=== PATIENT | male | born 1970 | race Two or more races ===

== ENCOUNTER 2025-01-28 14:06 | Emergency (ER) | payer OTHER, SELFPAY ==
--- NOTE | 2025-01-28 14:23 | PD.EDCHEST ---
ED Chest Pain RME/HPI General Chief Complaint: Altered Mental Status Stated Complaint: CHEST PAIN Time Seen by Provider: 01/28/25 14:25 Source: patient and EMS Arrival date/time: 01/28/25 14:06 Mode of arrival: EMS Limitations: no limitations RME / HPI RME / HPI narrative: DR. JAYLEEN PEOPLES ED EVALUATION: 54-year-old male with past medical history of achalasia status post esophageal surgery 20 years ago and GERD presents to the Emergency Department [facility] after developing acute chest pain while driving from [facility] to [place]. He reports associated numbness and tingling in both arms and legs. He denies having experienced similar symptoms in the past. Per EMS, patient was tachycardic with a heart rate was 115?131 en route. ASA and sublingual nitro given en route by EMS. When EMS arrived patient was already out of the car. Was able to ambulate onto the the ambulance without any difficulties. Both arms and both legs were moving without any abnormalities. Related Data Allergies Allergy/AdvReac Type Severity Reaction Status Date / Time No Known Allergies Allergy Verified 01/28/25 15:22 Review of Systems Review of Systems Systems Reviewed: All systems reviewed, normal except as documented Past Medical History Social History SMOKING STATUS: Never smoker SUBSTANCE USE: does not use ALCOHOL: Never Past Medical History Comments PMH COMMENT: Achalasia status post esophageal surgery 20 years ago and GERD. ED Exam General Limitations: Present no limitations General appearance: Present alert and in no apparent distress Head Head exam: Present atraumatic, normocephalic and normal inspection Eye Eye exam: Present normal appearance, PERRL and EOMI ENT ENT exam: Present normal exam, normal oropharynx and mucous membranes moist Neck Neck exam: Present normal inspection, full ROM and trachea midline Chest Chest inspection: Present normal inspection and symmetric chest wall rise Respiratory Respiratory exam: Present normal lung sounds bilaterally and wheezes; Absent respiratory distress Cardiovascular Cardiovascular exam: Present regular rate Abdominal Exam Abdominal exam: Present soft; Absent distention, tenderness or guarding Extremities Exam Extremities exam: Present normal inspection and other (Patient globally weak in all 4 extremities) Back Exam Back exam: Present normal inspection Neurological Exam Neurological exam: Present alert, oriented X3, CN II-XII intact and other (Globally weak in all 4 extremities on initial assessment) Skin Skin exam: Present warm, dry, intact and normal color Course Quality Measures none Orders Category Date Time Status Bedside Blood Glucose NOW Care 01/28/25 14:[address] Screening NOW Care 01/28/25 14:43 Active Copping Machine Operator NOW Care 01/28/25 14:44 Active Continuous Pulse Oximetry NOW Care 01/28/25 14:44 Completed EKG (ED ONLY) *Do not use* NOW Care 01/28/25 14:26 Completed In and Out Catheter NEEDED Care 01/28/25 14:44 Active Insert IV NOW Care 01/28/25 14:44 Active MRI Screening NOW Care 01/28/25 15:42 Active NIH Stroke Scale now Care 01/28/25 14:44 Active NPO NOW Care 01/28/25 14:44 Active Neuro Check Q1HR Care 01/28/25 14:44 Active Nurse Swallow Screen x1 Care 01/28/25 14:44 Active Consult to Neurology / Tele-Neurology Routine Cons 01/28/25 14:[address] angio chest Stat Exams 01/28/25 14:[address] angio stroke protocol Stat Exams 01/28/25 14:[address] stroke protocol Stat Exams 01/28/25 14:44 Completed CXR [XR chest 1V] Stat Exams 01/28/25 14:27 Completed EKG (ED Only) Stat Exams 01/28/25 14:26 Draft CBC Stat Lab 01/28/25 15:00 Completed CMP [Comprehensive Metabolic Panel] Stat Lab 01/28/25 15:00 Completed Drug Screen,Urine Stat Lab 01/28/25 14:26 Ordered INR [Prothrombin Time with INR] Stat Lab 01/28/25 15:00 Completed Magnesium Stat Lab 01/28/25 15:00 Completed T4 (Thyroxine) Stat Lab 01/28/25 15:00 Completed TSH [Thyroid Stimulating Hormone] Stat Lab 01/28/25 15:00 Completed Troponin I Stat Lab 01/28/25 15:00 Completed UA, C/S IF [Urinalysis, C/S if Indicated] Stat Lab 01/28/25 14:26 Ordered Labetalol IV [Trandate IV] Med 01/28/25 14:43 Discontinued 10 mg IVP Q15M PRN Morphine* Inj Med 01/28/25 14:25 Discontinued 2 mg IVP STAT STA Ondansetron Inj [Zofran Inj] Med 01/28/25 14:43 Discontinued 4 mg IVP Q4HR PRN Ondansetron Inj [Zofran Inj] Med 01/28/25 14:25 Discontinued 4 mg IVP X1 ONE Tenecteplase Inj [TNKase Inj] Med 01/28/25 15:25 Discontinued 24.9 mg IV X1 ONE Tenecteplase Inj [TNKase Inj] Med 01/28/25 15:23 Discontinued 50 mg .ROUTE .STK-MED ONE Oxygen Delivery NOW RT 01/28/25 14:44 Active Vital Signs Vital signs: Vital Signs Pulse Rate 87 01/28/25 14:44 Chest Pain MDM Narrative MDM Narrative:: Patient is a 54-year-old male with no significant past medical history seen emerged primary concerns for acute onset chest pain. Vital signs and exam as listed. Concern for ACS arrhythmia electrolyte abnormality metabolic derangement among others. Ordered labs EKG chest x-ray. Also offered medication for symptom relief. Patient did receive aspirin and nitroglycerin and route. 2:43p was asked by nursing staff to reevaluate patient, patient is now moving his left upper extremity, however has weakness on the right side of his body. This is an acute change as per EMS patient was walking and ambulatory on their arrival. Initially did not have any focal neurodeficits. On my initial evaluation patient with diffuse weakness in all 4 extremities, however nonfocal, no cranial nerve deficits. Patient did not endorse dizziness. Per the patient's the patient has a history of a right lower extremity vascular derangement requiring recurrent visits for vein stripping. Given that patient has new focal neuro deficits with weakness in RUE/RLE, activated patient as a stroke alert and order CTA chest. My interpretation: EKG performed at 1525 hours, sinus rhythm, rate 71, normal intervals, non specific T wave changes, no cardiac alert. Labs without acute hematologic or significant metabolic abnormality. T. bili 1.3 no other transaminitis. Patient without any abdominal pain. Troponin not elevated. Thyroid studies unremarkable. CT brain, CT angio of the head and neck unremarkable. CT angio of the chest without evidence of any acute abnormalities. Chest x-ray unremarkable. During teleneurologist evaluation, patient had persistent weakness of his right upper and right lower extremity. Towards the end of the evaluation patient regained full control of his right upper and right lower extremity. Teleneurologist did not recommend that we administer tenecteplase. I am in agreement. Does recommend that we admit the patient for further workup as he may be having a TIA. 4:24p on reevaluation patient hemodynamically stable not in distress, GCS 15 no focal neurodeficits. Discussed with hospitalist, kindly accepted patient for admission I, Magnolia Miller, am scribing for and in the presence of Dr. Lopez. Patient data External records reviewed:: EMS form Clinical information provided by:: patient and EMS Social determinants that could affect healthcare access:: none Patient has the following chronic illnesses:: Achalasia status post esophageal surgery 20 years ago and GERD. How is presenting disease/condition affected by chronic disease/condition?: uneffected by Evaluation data The following diagnostics were reviewed and interpreted by me:: lab results, radiology exam(s) and EKG tracing(s) (My interpretation: EKG performed at 1525 hours, sinus rhythm, rate 71, normal intervals, non specific T wave changes, no cardiac alert) Lab and/or radiology exams considered but not ordered:: none Interpretation Summary: See MDM narrative above. RADIOLOGY Procedure(s): CT angio stroke protocol Accession Number(s): [id number] cc: Alex Edmond MD; Carin Lopez MD~ Examination: CTA carotids with intravenous contrast CTA brain, head with intravenous contrast. 2-D sagittal, coronal reconstructions. 3-D reconstructions. Exam date and time: January 28, 2025, 1445 hrs. Indications: Stroke alert, onset focal neurologic deficit today CTDI: vol (mGy) 11.6 DLP: (mGycm) 177 Technique: Multiple CTA axial brain, head carotid images post intravenous contrast injection 75 cc, Isovue-370. 2-D sagittal, coronal reconstructions. 3-D reconstructions, 3-D post processing including vascular maximum intensity projection images. Low dose protocols were performed. One or more of the following dose reduction techniques were used; automated exposure control, adjustment of the mA and/or KV according to patient size, use of iterative reconstruction technique. Findings: No significant common carotid, carotid bifurcation or internal carotid artery stenoses. Minimally dominant left vertebral artery in the neck with no critical stenoses. Intracranial vertebral arteries basilar artery and posterior cerebral branches fill with no large vessel occlusions Petrous juxtasellar portions internal carotid arteries intact M1 segments middle cerebral arteries middle cerebral artery trifurcation vessels and anterior cerebral arteries with no large vessel occlusions. Impression: No significant neck arterial stenoses No cerebral large vessel arterial occlusions or thrombus Dictated By: Alex Edmond MD Procedure(s): CT stroke protocol Accession Number(s): [id number] cc: Alex Edmond MD; Carin Lopez MD~ Examination: CT brain head without contrast. 2-D sagittal coronal reconstructions Date and time of exam:January 28, 2025, 1450 hrs. Indications: Stroke alert, onset focal neurologic deficit including right-sided body weakness today CTDI: vol (mGy):50 DLP: (mGycm):986 Technique: Multiple CT axial sections of the brain have been obtained, 5 mm slice thickness. Contrast has not been administered. 2-D sagittal, coronal reconstructions have been obtained Low dose protocols were performed. One or more of the following dose reduction techniques were used; automated exposure control, adjustment of the mA and/or KV according to patient size, use of iterative reconstruction technique. Findings: No significant ventricular enlargement. Intra-axial or extra-axial hemorrhage density is not seen. No mass effect or midline shift Basal cisterns are not remarkable. Fourth ventricle is midline. Cranial vault intact. Impression: Negative for acute hemorrhage, mass effect or midline shift Dictated By: Alex Edmond MD Procedure(s): CT angio chest Accession Number(s): [id number] cc: Alex Edmond MD; Carin Lopez MD~ Examination: CTA chest with intravenous contrast 2-D reconstructions 3-D reconstructions, vascular Date and time of exam: January 28, 2025, 1518 hrs. Indications: Onset chest pain shortness of breath today CTDI: vol (mGy) 14.7 DLP: (mGycm) 649 Technique: Multiple axial sections of the thorax have been obtained. 3 mm slice thickness, from below the hemidiaphragms to above the apices of the lungs. Mediastinal and lung density settings have been obtained. 2-D sagittal and coronal reconstructions. 3-D angiographic renderings, 3-D volume renderings, 3D post processing, vascular maximum intensity projections obtained. Contrast administered is 100 cc Isovue-370 intravenous. Low dose protocols were performed. One or more of the following dose reduction techniques were used; automated exposure control, adjustment of the mA and/or KV according to patient size, use of iterative reconstruction technique. Findings: No thoracic aortic aneurysm dilatation or dissection Pulmonary artery segments are not enlarged. No pulmonary artery filling defects Mild calcification left anterior descending coronary artery. Mild enlargement left atrium left ventricle. No paratracheal tracheobronchial or bronchopulmonary adenopathy. No pneumonia pulmonary edema or pleural disease. Retrocardiac gastric hernia. No visualized liver splenic lesion. Absent gallbladder. No pancreatic or adrenal mass. Moderate renal scar formation Impression: No thoracic aortic aneurysm dilatation or dissection. Negative for pulmonary artery emboli. No pneumonia, pulmonary edema or pleural disease Dictated By: Alex Edmond MD Procedure(s): XR chest 1V Accession Number(s): [id number] cc: Alex Edmond MD; Carin Lopez MD~ Examination: AP chest single view Technique one AP portable semiupright chest single view Date and time: January 28, 2025, 1436 hrs. Indications: Chest pain today. Findings: Normal heart size. Lungs are clear. The osseous structures are intact. Impression: No active disease. Dictated By: Alex Edmond MD Medications / Prescriptions Medications or Prescriptions considered but not ordered:: none Medication administrations:: Medication Administration History Discontinued Medications Labetalol HCl (Labetalol Inj 5 Mg/Ml Vial 20 Ml) 10 mg IVP Q15M PRN PRN Reason: HYPER Morphine Sulfate (Morphine Sulf Inj 4 Mg/Ml Vial) 2 mg IVP STAT STA Stop: 01/28/25 14:26 Ondansetron HCl (Ondansetron Inj 2 Mg/Ml Inj 2 Ml) 4 mg IVP X1 ONE; Protocol Stop: 01/28/25 14:26 Last Admin: 01/28/25 16:03 Dose: 4 mg Documented By: KELLY Ondansetron HCl (Ondansetron Inj 2 Mg/Ml Inj 2 Ml) 4 mg IVP Q4HR PRN PRN Reason: NAUSEA OR VOMITING Stop: 02/27/25 14:42 Tenecteplase (Tenecteplase Inj 50 Mg Vial) Confirm Administered Dose 50 mg .ROUTE .STK-MED ONE Stop: 01/28/25 15:24 Last Admin: 01/28/25 15:40 Dose: Not Given Documented By: DB Non-Admin Reason: Duplicate Medication on eMAR Tenecteplase (Tenecteplase Inj 50 Mg Vial) 24.9 mg 0.25 mg/kg (24.9 mg) IV X1 ONE Stop: 01/28/25 15:26 Last Admin: 01/28/25 15:40 Dose: Not Given Documented By: DB Non-Admin Reason: Cancelled by Provider see above if any Consultations Consultation(s) initiated? (list below): Yes Consultation #1 (Physician, Specialty, Details): Discussed test HPI, PMHx, lab, radiology results and/or management with resident working with the hospitalist. Will admit for further evaluation and management. Accepts patient for admission. Time: 16:26 Diagnosis Chest Pain Differential Diagnosis: other (Acute coronary syndrome, arrhythmia, and anxiety/panic attack.) Most likely diagnosis given after review of the tests above:: TIA, chest pain Admission Indicated Admission indicated?: indicated Admission Request Was there a request for admission?: Yes Admission Attestation Admission request attestation: Discussed case with Hospitalist service regarding admission. Discussed patients ED course, exam findings, labs, and radiology results. The Hospitalist [agrees] to accept the patient for admission. Disposition Plan Disposition Plan: Admit Critical Care Time Critical Care Time Critical Care Time: Yes Total Critical Care Time (min.): 45 Attestation: ?I spent 45 minutes of critical care time with this patient not including reportable procedures. There was an acute impairment of an organ system with a high probability of imminent or life threatening deterioration in the patient's condition. Interventions and changes required in the course of therapy are located in the chart. Time involved was spent in direct patient care, reviewing ancillary data, old records, consulting with decision makers, EMS, other doctors, giving orders and documenting. Discharge Plan Problem List Clinical Impression: Brain TIA, Chest pain Patient/Caregiver Discharge Instructions Print Language: [place]ian
--- NOTE | 2025-01-28 14:26 | EKG_ITS ---
[facility] Test Date: 2025-01-28 Pat Name: ANTONIO PIERCE Department: Room: - Gender: Male [employer]: : 1970 Requested By: Carin Olson Order Number: [id number] Reading MD: Carin Olson Measurements Intervals [place] Rate: 71 P: 59 [place]: 153 QRS: 16 QRSD: 88 T: 27 QT: 397 QTc: 432 Interpretive Statements SINUS RHYTHM No previous ECG available for comparison /store/S0/[id number]/ecg/[id number].pdf
--- NOTE | 2025-01-28 14:27 | XR_ITS ---
Examination: AP chest single view Technique one AP portable semiupright chest single view Date and time: January 28, 2025, 1436 hrs. Indications: Chest pain today. Findings: Normal heart size. Lungs are clear. The osseous structures are intact. Impression: No active disease.
--- NOTE | 2025-01-28 14:43 | XR_ITS ---
Examination: CTA chest with intravenous contrast 2-D reconstructions 3-D reconstructions, vascular Date and time of exam: January 28, 2025, 1518 hrs. Indications: Onset chest pain shortness of breath today CTDI: vol (mGy) 14.7 DLP: (mGycm) 649 Technique: Multiple axial sections of the thorax have been obtained. 3 mm slice thickness, from below the hemidiaphragms to above the apices of the lungs. Mediastinal and lung density settings have been obtained. 2-D sagittal and coronal reconstructions. 3-D angiographic renderings, 3-D volume renderings, 3D post processing, vascular maximum intensity projections obtained. Contrast administered is 100 cc Isovue-370 intravenous. Low dose protocols were performed. One or more of the following dose reduction techniques were used; automated exposure control, adjustment of the mA and/or KV according to patient size, use of iterative reconstruction technique. Findings: No thoracic aortic aneurysm dilatation or dissection Pulmonary artery segments are not enlarged. No pulmonary artery filling defects Mild calcification left anterior descending coronary artery. Mild enlargement left atrium left ventricle. No paratracheal tracheobronchial or bronchopulmonary adenopathy. No pneumonia pulmonary edema or pleural disease. Retrocardiac gastric hernia. No visualized liver splenic lesion. Absent gallbladder. No pancreatic or adrenal mass. Moderate renal scar formation Impression: No thoracic aortic aneurysm dilatation or dissection. Negative for pulmonary artery emboli. No pneumonia, pulmonary edema or pleural disease
[2025-01-28 14:44] VITALS: PULSE 87
--- NOTE | 2025-01-28 14:44 | XR_ITS ---
Examination: CTA carotids with intravenous contrast CTA brain, head with intravenous contrast. 2-D sagittal, coronal reconstructions. 3-D reconstructions. Exam date and time: January 28, 2025, 1445 hrs. Indications: Stroke alert, onset focal neurologic deficit today CTDI: vol (mGy) 11.6 DLP: (mGycm) 177 Technique: Multiple CTA axial brain, head carotid images post intravenous contrast injection 75 cc, Isovue-370. 2-D sagittal, coronal reconstructions. 3-D reconstructions, 3-D post processing including vascular maximum intensity projection images. Low dose protocols were performed. One or more of the following dose reduction techniques were used; automated exposure control, adjustment of the mA and/or KV according to patient size, use of iterative reconstruction technique. Findings: No significant common carotid, carotid bifurcation or internal carotid artery stenoses. Minimally dominant left vertebral artery in the neck with no critical stenoses. Intracranial vertebral arteries basilar artery and posterior cerebral branches fill with no large vessel occlusions Petrous juxtasellar portions internal carotid arteries intact M1 segments middle cerebral arteries middle cerebral artery trifurcation vessels and anterior cerebral arteries with no large vessel occlusions. Impression: No significant neck arterial stenoses No cerebral large vessel arterial occlusions or thrombus
--- NOTE | 2025-01-28 14:44 | XR_ITS ---
Examination: CT brain head without contrast. 2-D sagittal coronal reconstructions Date and time of exam:January 28, 2025, 1450 hrs. Indications: Stroke alert, onset focal neurologic deficit including right-sided body weakness today CTDI: vol (mGy):50 DLP: (mGycm):986 Technique: Multiple CT axial sections of the brain have been obtained, 5 mm slice thickness. Contrast has not been administered. 2-D sagittal, coronal reconstructions have been obtained Low dose protocols were performed. One or more of the following dose reduction techniques were used; automated exposure control, adjustment of the mA and/or KV according to patient size, use of iterative reconstruction technique. Findings: No significant ventricular enlargement. Intra-axial or extra-axial hemorrhage density is not seen. No mass effect or midline shift Basal cisterns are not remarkable. Fourth ventricle is midline. Cranial vault intact. Impression: Negative for acute hemorrhage, mass effect or midline shift
[2025-01-28 15:19] LABS: Basophils # (Auto) 0.0 Thou/mm3 (0.0-0.2); Basophils % (Auto) 0 % (0-2.5); Eosinophils # (Auto) 0.1 Thou/mm3 (0.0-0.5); Eosinophils % (Auto) 1 % (0-10); Hematocrit 44.6 % (41.0-53.0); Hemoglobin 15.3 g/dL (13.5-16.0); Immature Granulocytes Auto 0.04 Thou/mm3 (0.00-0.00); Lymphocytes # (Auto) 1.2 Thou/mm3 (1.0-4.8); Lymphocytes % (Auto) 17 % (10-50); Mean Corpuscular HGB Conc 34.3 g/dl (31.0-37.0); Mean Corpuscular Hemoglobin 30.4 pg (25.0-35.0); Mean Corpuscular Volume 89 fL (80-100); Monocytes # (Auto) 0.5 Thou/mm3 (0.0-0.8); Monocytes % (Auto) 7 % (0-12); Neutrophils # (Auto) 5.3 Thou/mm3 (1.8-7.7); Neutrophils % (Auto) 74 % (37-80); Nucleated Red Blood Cell # 0.00 Thou/mm3 (0.00-0.00); Nucleated Red Blood Cell % 0 /100 WBC (0); Platelet Count 210 Thou/mm3 (140-440); RDW Standard Deviation 43.4 fL (35.1-43.9); Red Blood Count 5.03 Miln/mm3 (4.50-5.90); White Blood Count 7.1 Thou/mm3 (3.8-10.6)
[2025-01-28 15:21] VITALS: BMI 28.2
[2025-01-28 15:31] LABS: INR 1.0 (0.9-1.3); Prothrombin Time 11.4 Seconds (9.0-12.2)
[2025-01-28 15:40] LABS: T4 (Thyroxine) 8.0 mcg/dL (4.5-10.9)
[2025-01-28 15:41] LABS: Alanine Aminotransferase 22 U/L (10-49); Albumin, Serum 4.7 gm/dL (3.5-5.0); Albumin/Globulin Ratio 1.8 (1.2-2.2); Alkaline Phosphatase 49 U/L (46-116); Anion Gap 13 (7-16); Aspartate Amino Transferase 26 U/L (0-34); BUN/Creatinine Ratio 10 Ratio (12-20); Bilirubin,Total 1.3 mg/dL (0.3-1.2); Blood Urea Nitrogen 11 mg/dL (9-23); Calcium 9.7 mg/dL (8.3-10.6); Calcium (Corrected) 9.7 mg/dL (8.5-10.1); Carbon Dioxide 21.0 mMol/L (20.0-31.0); Chloride 105 mMol/L (98-107); Creatinine (Component) 1.1 mg/dL (0.6-1.3); Estimated Creatinine Clearance 98.0 mL/min (>60); Globulin 2.6 gm/dL (2.3-3.5); Glucose 123 mg/dL (74-106); Magnesium 2.0 mg/dL (1.6-2.6); Osmolality,Calculated 277 (275-295); Potassium 3.8 mMol/L (3.4-5.1); Sodium 139 mMol/L (136-145); Thyroid Stimulating Hormone 1.05 uIU/mL (0.55-4.78); Total Protein 7.3 gm/dL (5.7-8.2); Troponin I < 0.020 ng/mL (0.0-0.045); eGFR > 60 See Note
--- NOTE | 2025-01-28 15:44 | ESCONSULT_ITS ---
Tele Neuro Consultation Consultation Date 01/28/25 Most Recent Vital Signs Last Vital Signs Pulse 87 01/28/25 14:44 Laboratory-Coagulation Panel PT 11.4 Seconds (9.0-12.2) 01/28/25 15:00 INR 1.0 (0.9-1.3) 01/28/25 15:00 Consultation Narrative [facility] TeleNeurology Consult Services Patient Name:???Leeroy Johns Jr. Date of :???1970 Date of Service:???01/28/2025 14:51:33 Diagnosis:?I63.89 - Cerebrovascular accident (CVA) due to other mechanism (HCCC) Impression: ?This is a 54-year-old male history who presents to the hospital with initially chest pain nausea and dizziness who then had onset of right-sided weakness in the emergency department. Last known well initially reported to be 11 AM but chest pain resolved with nitroglycerin and right-sided weakness started shortly after 2 PM when he arrived in the hospital. NIH stroke scale 4 for right arm and leg weakness. He reports chronic changes in the right lower extremity with some venous insufficiency/drainage issues that he is going to start treatment for in March. CT head with no acute findings. Obtain CT angio to rule out dissection given chest pain prior to onset. We had initially discussed the risks and benefits of tenecteplase and were ready to push the medication while waiting for the CT angio chest. Symptoms improved while waiting for confirmation regarding CTA chest. He was able to lift and sustain the right arm and leg without evidence of drift. TNK was deferred given improved symptoms. CTA head and neck was negative for large vessel occlusion. ?Recommend admission for MRI brain wo contrast and loading with DAPT. Our recommendations are outlined below. Recommendations: ? Stroke/Telemetry Floor ? Neuro Checks (Q4) ? Bedside Swallow Eval ? DVT Prophylaxis ? IV Fluids, Normal Saline ? Head of Bed 30 Degrees ? Euglycemia and Avoid Hyperthermia (PRN Acetaminophen) ? Bolus with Clopidogrel 300 mg bolus x1 and initiate dual antiplatelet therapy with Aspirin 81 mg daily and Clopidogrel 75 mg daily ?MRI brain without contrast ?Labs: lipid panel and hemoglobin A1C if not done within last 90 days ?Statin therapy if LDL > 70 ?TTE with bubble ?Holter monitor at discharge to assess for A-fib ?PT/OT/Speech Sign Out: ? Discussed with Emergency Department Provider Advanced Imaging: CTA Head and Neck Completed. LVO:No Patient is not a candidate for DENISE Metrics: Last Known Well: 01/28/2025 14:00:00 Dispatch Time: 01/28/2025 14:51:33 Initial Response Time: 01/28/2025 14:54:00Symptoms: R sided weakness, dizziness, nausea, chest pain. Initial patient interaction: 01/28/2025 14:54:42 NIHSS Assessment Completed: 01/28/2025 14:58:14Patient is not a candidate for Thrombolytic. Thrombolytic Medical Decision: 01/28/2025 15:24:15Patient was not deemed candidate for Thrombolytic because of following reasons: Resolved symptoms . Weight Noted by Staff: 99.[address] Head: I personally reviewed all the CT images that were available to me and it showed: no acute intracranial process Primary Provider Notified of Diagnostic Impression and Management Plan on: 01/28/2025 15:33:29 History of Present Illness:Patient is a 54 year old Male. He has not been feeling well for the last 24 hours per - he has had some nausea[place] continued to get more nauseous. He was very uncomfortable and started having chest pain as well. When he would get out of the car, he seemed off balance and was stumbling, said he was walking like he was drunk. He was also having a hard time breathing. Right sided weakness was not appreciated until they arrived in the ED. Patient reported baseline RLE weakness but the R arm weakness is new and started after he arrived in the ED. He was up walking around prior to EMS arriving on the scene without the right sided symptoms. He is starting treatments in March for some swelling in the RLE - had a severe fracture in the RLE many years ago. He has a lot of baseline swelling in the leg. US showed a lot of damaged veins that are leaking into his leg and they need to go in and cauterize the vessels, per report from 's doctor at home. said it does not seem to be an urgent matter. Do not have access to records. Past Medical History: ?There is no history of Hypertension ?There is no history of Diabetes Mellitus ?There is no history of Hyperlipidemia Medications: No Anticoagulant use? No Antiplatelet use Reviewed EMR for current medications Allergies:? Reviewed Social History: Smoking: No Alcohol Use: Yes Family History: There is no family history of premature cerebrovascular disease pertinent to this consultation ROS : 14 Points Review of Systems was performed and was negative except mentioned in HPI. Past Surgical History: There Is No Surgical History Contributory To Today?s Visit Examination: BP(140/90),?Pulse(74), 1A: Level of Consciousness - Alert; keenly responsive?+ 0 1B: Ask Month and Age - Both Questions Right?+ 0 1C: Blink Eyes & Squeeze Hands - Performs Both Tasks?+ 0 2: Test Horizontal Extraocular Movements - Normal?+ 0 3: Test Visual Shel[place] - No Visual Loss?+ 0 4: Test Facial Palsy (Use Grimace if Obtunded) - Normal symmetry?+ 0 5A: Test Left Arm Motor Drift - No Drift for 10 Seconds?+ 0 5B: Test Right Arm Motor Drift - Drift, but doesn't hit bed?+ 1 6A: Test Left Leg Motor Drift - No Drift for 5 Seconds?+ 0 6B: Test Right Leg Motor Drift - No Effort Against [place]?+ 3 7: Test Limb Ataxia (FNF/Heel-Hutton) - No Ataxia?+ 0 8: Test Sensation - Normal; No sensory loss?+ 0 9: Test Language/Aphasia - Normal; No aphasia?+ 0 10: Test Dysarthria - Normal?+ 0 11: Test Extinction/Inattention - No abnormality?+ 0 NIHSS Free Text :?had significant difficulty lifting up the right arm Pre-Morbid Modified Rufus Scale: 1 Points = No significant disability despite symptoms; able to carry out all usual duties and activities Spoke with :?Dr. Lopez This consult was conducted in real time using interactive audio and video technology. Patient was informed of the technology being used for this visit and agreed to proceed. Patient located in hospital and provider located at home/office setting. Patient is being evaluated for possible acute neurologic impairment and high probability of imminent or life-threatening deterioration. I spent total of 35 minutes providing care to this patient, including time for face to face visit via telemedicine, review of medical records, imaging studies and discussion of findings with providers, the patient and/or family. Dr Jenny Neely [facility] For Inpatient follow-up with [facility] physician please call [facility] at . As we are not an outpatient service for any post hospital discharge needs please contact the hospital for assistance. If you have any questions for the [facility] physicians or need to reconsult for clinical or diagnostic changes please contact us via [facility] at . Signature :?Jenny Neely
[2025-01-28 16:01] VITALS: BP 153/91; PULSE 67; RESP 18; TEMP 36.5; O2SAT 95
[2025-01-28] MEDS: ONDANSETRON INJ 2 MG/ML INJ 2 ML 4 MG IVP (16:03)
[2025-01-28 16:08] VITALS: PULSE 67; RESP 16; RESP 97
[2025-01-28 16:39] LABS: Collection Type, Urine Clean Catch
[2025-01-28 16:51] VITALS: PULSE 71; RESP 19; RESP 97
[2025-01-28 17:12] LABS: Amphetamine/Methamp Scrn,U Negative (Negative); Barbiturate Screen,Urine Negative (Negative); Benzodiazepines Screen,Urine Negative (Negative); Benzoylecgonine Screen, Ur Negative (Negative); Fentanyl Screen,Urine Negative (Negative); Opiate Screen,Urine Negative (Negative); THC Screen,Urine Negative (Negative)
[2025-01-28 17:23] LABS: Bilirubin,Urine Negative (Negative); Blood,Urine Negative (Negative); Clarity,Urine Clear (Clear/Hazy); Color,Urine Lt-Yellow (Lt Yel-Yel); Culture Indicated,Urine Not Indicated; Glucose, Urine Negative (Negative); Ketones,Urine 2+ (Negative); Leukocyte Esterase,Urine Negative (Negative); Nitrite,Urine Negative (Negative); PH,Urine 8.5 (5.0-7.0); Protein,Urine Trace (Neg - Trace); RBC,Urine 1 /hpf (0-3); Squamous Epithelial Cell,Urine < 1 /hpf (0-5); Urobilinogen,Urine Negative mg/dL (0.0-1.0); WBC,Urine < 1 /hpf (0-5)
--- NOTE | 2025-01-28 17:31 | PD.RESHP ---
Documentation for date of: 01/28/25 [facility] History of Present Illness History of present illness: Leeroy Johns is a 54 yo male with no significant PMHx presented to the hospital with R sided weakness admitted for stroke evaluation and management. He reports that he was driving for a prolonged period of time and then began experiencing chest pain initially 54-year-old male history who presents to the hospital with initially chest pain nausea and dizziness who then had onset of right-sided weakness in the emergency department. Last known well initially reported to be 11 AM but chest pain resolved with nitroglycerin and right-sided weakness started shortly after 2 PM when he arrived in the hospital. NIH stroke scale 4 for right arm and leg weakness. He reports chronic changes in the right lower extremity with some venous insufficiency/drainage issues that he is going to start treatment for in March. CT head with no acute findings. Obtain CT angio to rule out dissection given chest pain prior to onset. We had initially discussed the risks and benefits of tenecteplase and were ready to push the medication while waiting for the CT angio chest. Symptoms improved while waiting for confirmation regarding CTA chest. He was able to lift and sustain the right arm and leg without evidence of drift. TNK was deferred given improved symptoms. CTA head and neck was negative for large vessel occlusion. ?Recommend admission for MRI brain wo contrast and loading with DAPT. Our recommendations are outlined below. Exam Vital Signs Temp Pulse Resp BP Pulse Ox O2 Del Method 97.7 F 67 16 153/91 H 95 Room Air 01/28/25 16:01 01/28/25 16:08 01/28/25 16:08 01/28/25 16:01 01/28/25 16:01 01/28/25 16:01 Results: Labs 01/28/25 15:00 01/28/25 15:00 Labs: Short CBC 01/28/25 Range/Units 15:00 WBC 7.1 (3.8-10.6) Thou/mm3 Hgb 15.3 (13.5-16.0) g/dL Hct 44.6 (41.0-53.0) % Plt Count 210 (140-440) Thou/mm3 BMP 01/28/25 15:00 Sodium 139 Potassium 3.8 Chloride 105 Carbon Dioxide 21.0 BUN 11 Creatinine 1.1 Glucose 123 H Calcium 9.7 Cardiac Enzymes 01/28/25 Range/Units 15:00 Troponin I < 0.020 (0.0-0.045) ng/mL Liver Function 01/28/25 Range/Units 15:00 Total Bilirubin 1.3 H (0.3-1.2) mg/dL AST 26 (0-34) U/L ALT 22 (10-49) U/L Alkaline Phosphatase 49 (46-116) U/L Albumin 4.7 (3.5-5.0) gm/dL Quality Measures Quality Measures none Medications Home Medications and Allergies Allergies Allergy/AdvReac Type Severity Reaction Status Date / Time No Known Allergies Allergy Verified 01/28/25 15:22 Visit Medications Aspirin (Aspirin Ec 81 Mg Tabec) 81 mg PO QDAY [facility] Stop: 02/27/25 17:14 Clopidogrel Bisulfate (Clopidogrel Bisulfate 75 Mg Tablet) 300 mg PO X1 ONE Stop: 01/28/25 17:08 Clopidogrel Bisulfate (Clopidogrel Bisulfate 75 Mg Tablet) 75 mg PO QDAY [facility] Stop: 02/27/25 17:14 Diazepam (Diazepam Inj 5 Mg/Ml Vial 2 Ml) 2.5 mg IVP Q2HR PRN PRN Reason: CIWA SCORE 8-13 Stop: 02/02/25 17:21 Diazepam (Diazepam Inj 5 Mg/Ml Vial 2 Ml) 5 mg IVP Q2HR PRN PRN Reason: CIWA SCORE 14-19 Stop: 02/02/25 17:21 Diazepam (Diazepam Inj 5 Mg/Ml Vial 2 Ml) 10 mg IVP Q2HR PRN PRN Reason: CIWA SCORE 20-25 Stop: 02/02/25 17:21 Folic Acid (Folic Acid 1 Mg Tablet) 1 mg PO QDAY [facility] Stop: 02/27/25 17:29 Thiamine HCl (Thiamine 100 Mg Tablet) 100 mg PO QDAY [facility] Stop: 02/27/25 17:29 Discontinued Medications Labetalol HCl (Labetalol Inj 5 Mg/Ml Vial 20 Ml) 10 mg IVP Q15M PRN PRN Reason: HYPER Morphine Sulfate (Morphine Sulf Inj 4 Mg/Ml Vial) 2 mg IVP STAT STA Stop: 01/28/25 14:26 Ondansetron HCl (Ondansetron Inj 2 Mg/Ml Inj 2 Ml) 4 mg IVP X1 ONE; Protocol Stop: 01/28/25 14:26 Last Admin: 01/28/25 16:03 Dose: 4 mg Ondansetron HCl (Ondansetron Inj 2 Mg/Ml Inj 2 Ml) 4 mg IVP Q4HR PRN PRN Reason: NAUSEA OR VOMITING Stop: 02/27/25 14:42 Tenecteplase (Tenecteplase Inj 50 Mg Vial) 24.9 mg 0.25 mg/kg (24.9 mg) IV X1 ONE Stop: 01/28/25 15:26 Last Admin: 01/28/25 15:40 Dose: Not Given Assessment & Plan Plan #TIA #Unspecified Chest Pain # #Chronic Alcohol Use
[2025-01-28 17:51] LABS: Specific Gravity,Urine 1.010 (1.001-1.035)
--- NOTE | 2025-01-28 18:51 | EVENTNT_ITS ---
Documentation for date of: 01/28/25 Event Note Event Note: At approximately 1805 I was notified that the patient, Mr. Leeroy Johns wished to leave the hospital AGAINST MEDICAL ADVICE. The patient was previously admitted for strokelike symptoms, presumed to be a transischemic attack, all imaging thus far was negative for any acute intracranial pathology to include CVA. The patient was given aspirin and Plavix in the ED, MRI, echocardiogram and several serologies were pending. I did explain to the patient that workup was not complete and that if we did not completely work him up for CVA, the end result may be a serious his or serious debility and impairment. The patient un derstood the risks of leaving AGAINST MEDICAL ADVICE and decided to do so regardless. I did explain to the patient that he should return to the emergency department if his symptoms return and follow-up with his primary care physician as soon as possible. He understood my instructions.
--- NOTE | 2025-01-28 19:03 | ESHP_ITS ---
Documentation for date of: 01/28/25 HPI History of Present Illness Chief complaint: R sided weakness History of present illness: 54-year-old male with no significant past medical history other than heavy alcohol use disorder, drinks 4-6 beers a day for the past 2030 years presenting to the ED on 01/28 with episode of chest pain and nausea. Patient states that he is traveling from [facility] to meet relatives in the area at which point during the car ride started developing chest pain with nausea. Patient presented to the ED at which point workup was done for possible PE versus cardiac etiology at which point EKG, CTA of the chest were negative for any acute findings. Patient denies having any symptoms similar in the past and denies having any concerning laboratory or medical conditions. Patient states that his last PCP visit was about 1 year ago and that all his lab findings were normal. Patient denies taking any medications, supplements. Medical history: As stated above Surgical history: Laparoscopic cholecystectomy about 25 years ago, right knee surgery Medications: Denies Allergies: NKDA Family history: Denies any significant history of [place] or stroke in family members Social history: Patient sells boats, lives in [facility] with , denies any tobacco or illicit drug use. Drinks 4-6 beers a day for the past 20 to 30 years ROS: All 12 systems assessed and the patient denies unless otherwise stated in HPI In the ED, patient presented hypertensive 153/91, regular heart rate, respiratory rate of 18, afebrile satting 95 on room air. Pertinent lab findings included T. bili of 1.3, AST of 26, ALT of 22, troponin less than 0.020. Urinalysis was positive for 2+ ketones but otherwise negative for any signs of infection. U tox was negative, urine alcohol is pending at the time of this H&P. Chest x-ray did not show any active disease, chest CTA was negative, head CT was also negative, head and neck CT a was negative and EKG showed normal sinus rhythm. During workup in the ED, patient started developing upper and lower extremity weakness bilaterally initially but then mostly on the right side. Stroke alert was initiated. Teleneurologist was able to see and assessed the patient and graded an NIHSS score of 1. Recommendation was to admit the patient for TIA workup. Exam Vital Signs Temp Pulse Resp BP Pulse Ox O2 Del Method 97.7 F 71 19 153/91 H 95 Room Air 09/27/25 16:01 01/28/25 16:51 01/28/25 16:51 01/28/25 16:01 01/28/25 16:01 01/28/25 16:01 Narrative Exam Physical Exam: GENERAL: Awake, answering questions appropriately, appears stated age HEENT: NC/AT. Moist mucosa. PERRLA/EOMI. CARDIO: Heart RRR, no obvious murmurs, no JVD. PULM: No coughing or visible SOB. Lungs CTA B/L. GI: Abdomen soft, NT/ND, +BS. SKIN/MSK/EXT: Right lower extremity more edematous and larger than left. No wounds/discoloration/rashes/amputations noted. NEURO: Oriented x3, cranial nerves II to XII grossly intact, sensations grossly intact bilaterally, muscle strength 5 out of 5 on upper and lower extremities bilaterally, Moves extremities x4, cerebellar exam largely negative, no focal neurologic deficits noted. Results: Labs 01/28/25 15:00 01/28/25 15:00 Labs: Short CBC 01/28/25 Range/Units 15:00 WBC 7.1 (3.8-10.6) Thou/mm3 Hgb 15.3 (13.5-16.0) g/dL Hct 44.6 (41.0-53.0) % Plt Count 210 (140-440) Thou/mm3 BMP 01/28/25 15:00 Sodium 139 Potassium 3.8 Chloride 105 Carbon Dioxide 21.0 BUN 11 Creatinine 1.1 Glucose 123 H Calcium 9.7 Cardiac Enzymes 01/28/25 Range/Units 15:00 Troponin I < 0.020 (0.0-0.045) ng/mL Liver Function 01/28/25 Range/Units 15:00 Total Bilirubin 1.3 H (0.3-1.2) mg/dL AST 26 (0-34) U/L ALT 22 (10-49) U/L Alkaline Phosphatase 49 (46-116) U/L Albumin 4.7 (3.5-5.0) gm/dL Urine 01/28/25 Range/Units 16:24 Urine Color Lt-Yellow (Lt Yel-Yel) Urine Clarity Clear (Clear/Hazy) Urine pH 8.5 H (5.0-7.0) Ur Specific [place] 1.010 (1.001-1.035) Urine Protein Trace (Neg - Trace) Urine Glucose (UA) Negative (Negative) Quality Measures Quality Measures none Medications Home Medications and Allergies Allergies Allergy/AdvReac Type Severity Reaction Status Date / Time No Known Allergies Allergy Verified 01/28/25 15:22 Visit Medications Aspirin (Aspirin Ec 81 Mg Tabec) 81 mg PO QDAY [facility] Stop: 02/27/25 17:14 Clopidogrel Bisulfate (Clopidogrel Bisulfate 75 Mg Tablet) 75 mg PO QDAY [facility] Stop: 02/28/25 17:14 Diazepam (Diazepam Inj 5 Mg/Ml Vial 2 Ml) 2.5 mg IVP Q2HR PRN PRN Reason: CIWA SCORE 8-13 Stop: 02/02/25 17:21 Diazepam (Diazepam Inj 5 Mg/Ml Vial 2 Ml) 5 mg IVP Q2HR PRN PRN Reason: CIWA SCORE 14-19 Stop: 02/02/25 17:21 Diazepam (Diazepam Inj 5 Mg/Ml Vial 2 Ml) 10 mg IVP Q2HR PRN PRN Reason: CIWA SCORE 20-25 Stop: 02/02/25 17:21 Folic Acid (Folic Acid 1 Mg Tablet) 1 mg PO QDAY [facility] Stop: 02/27/25 17:29 Thiamine HCl (Thiamine 100 Mg Tablet) 100 mg PO QDAY [facility] Stop: 02/27/25 17:29 Discontinued Medications Clopidogrel Bisulfate (Clopidogrel Bisulfate 75 Mg Tablet) 300 mg PO X1 ONE Stop: 01/28/25 17:08 Clopidogrel Bisulfate (Clopidogrel Bisulfate 75 Mg Tablet) 75 mg PO QDAY [facility] Stop: 02/27/25 17:14 Labetalol HCl (Labetalol Inj 5 Mg/Ml Vial 20 Ml) 10 mg IVP Q15M PRN PRN Reason: HYPER Morphine Sulfate (Morphine Sulf Inj 4 Mg/Ml Vial) 2 mg IVP STAT STA Stop: 01/28/25 14:26 Ondansetron HCl (Ondansetron Inj 2 Mg/Ml Inj 2 Ml) 4 mg IVP X1 ONE; Protocol Stop: 01/28/25 14:26 Last Admin: 01/28/25 16:03 Dose: 4 mg Ondansetron HCl (Ondansetron Inj 2 Mg/Ml Inj 2 Ml) 4 mg IVP Q4HR PRN PRN Reason: NAUSEA OR VOMITING Stop: 02/27/25 14:42 Tenecteplase (Tenecteplase Inj 50 Mg Vial) 24.9 mg 0.25 mg/kg (24.9 mg) IV X1 ONE Stop: 01/28/25 15:26 Last Admin: 01/28/25 15:40 Dose: Not Given Assessment & Plan Plan 54-year-old male with no significant past medical history other than heavy alcohol use disorder, drinks 4-6 beers a day for the past 2030 years presenting with episode of chest pain and nausea was going to be admitted for right-sided deficits on upper and lower extremities likely secondary to TIA with neurology consultation and MR brain and echo. Patient left prior to being sent from the ED upstairs to the hospital, requesting to leave AGAINST MEDICAL ADVICE. There is an event note citing exact communication between patient #TIA, rule out As noted above, patient developed right sided upper and lower extremity deficits/weakness Teleneurology consulted NIH score of 1 [address] head and CTA head and neck negative, EKG normal sinus rhythm Plan: Neurology consultation MRI brain with and without contrast Echo with bubble study Head of bed greater than 30, keep euthymic and euthermic Follow-up on morning A1c, lipid panel Initiate DAPT Initiate high intensity statin #Concern for DVT Patient has been traveling by car from [facility] On examination, has right lower extremity swelling compared to left Plan: Ultrasound DVT ordered #Alcohol use disorder As noted above in HPI, heavy alcohol use disorder Plan: [facility] protocol Counseled on cessation of alcohol Health Maintenance: Lines: PIV Diet: Pending swallow eval Bowel: Senna as needed GI prophylaxis: Not needed DVT prophylaxis: Not needed at this time Dispo: Code: Patient seen and examined with attending Dr. Demarco Ramirez DO PGY-2 Internal Medicine - GME Attending Provider Attestation/Addendum I have discussed and was present for the essential components of the history, physical examination, diagnosis, and treatment plan with the resident. I agree with the patient's care as documented by the resident and amended herein by me. Fritz Pal DO. Although this document has been carefully reviewed, there may still be some phonetic and other typographical errors. These errors are purely grammatical due to imperfections in the software program and should not be construed in any way to compromise the substance of the patient's medical care during this visit.
[2025-01-28 19:04] LABS: Alcohol, Urine Negative (Negative)
== END 2025-01-28 18:13 | disposition left against medical advice (07) ==
PROVIDERS: Emergency Provider Emergency Medicine
DX: G45.9 Transient cerebral ischemic attack, unspecified (principal); R07.9 Chest pain, unspecified; R06.02 Shortness of breath; R29.701 NIHSS score 1; Z53.29 Procedure and treatment not carried out because of patient's decision for other reasons
CPT/HCPCS: 36415; 70450; 70496; 70498; 71045; 71275; 80053; 80307; 80320; 81001; 83735; 84436; 84443; 84484; 85025; 85610; 93005; 96374; 99284; A4649; J2405; Q9967; G0480